=== PATIENT | male | born 1980 | race Caucasian/White ===

== ENCOUNTER 2017-07-02 06:09 | Emergency (ER) | payer SELFPAY ==
[2017-07-02 06:20] VITALS: BMI 25.2
[2017-07-02] MEDS ORDERED: ACETAMINOPHEN 325 MG TABLET (FP) PO ONE (07:48)
--- NOTE | 2017-07-02 07:48 | PDOC ---
History of Present Illness - General Chief Complaint: Shortness of Breath Stated Complaint: SOB Time Seen by Provider: 07/02/17 07:19 History Source: Patient - History of Present Illness Timing/Duration: reports: yesterday Associated Symptoms: reports: chest pain/soreness, cough, shortness of breath. denies: fever/chills Past History - Past Medical History Allergies/Adverse Reactions: Allergies Allergy/AdvReac Type Severity Reaction Status Date / Time No Known Allergies Allergy Verified 07/02/17 06:50 Home Medications: Ambulatory Orders Clonazepam [Klonopin] 3 mg PO HS 07/02/17 Paxil 0 mg PO BID PRN 07/02/17 Anemia: No Asthma: No Cancer: No Cardiac Disorders: No CVA: No COPD: No DVT: No Dementia: No Diabetes: No Dialysis: No GI Disorders: No Disorders: No HTN: No Hypercholesterolemia: No Kidney Stones: No Liver Disease: No Psychiatric Problems: Yes (Depression Insomnia Anxiety) Seizures: No Thyroid Disease: No Lung CA: No - Surgical History Abdominal Surgery: Yes (Trauma) Appendectomy: Yes Cardiac Surgery: No Cholecystectomy: No Gastric Stapling: No GI Surgery: No Lung Surgery: No Neurologic Surgery: No - Suicide/Smoking/Psychosocial Hx Smoking History: Never smoked Have you smoked in the past 12 months: No Information on smoking cessation initiated: No Hx Alcohol Use: No Drug/Substance Use Hx: No Substance Use Type: None Review of Systems - Review of Systems Constitutional: No: Chills, Fever Respiratory: Yes: Cough, Shortness of Breath. No: Wheezing Cardiac (ROS): Yes: Chest Tightness. No: Palpitations *Physical Exam - Vital Signs Last Vital Signs Temp Pulse Resp BP Pulse Ox 98.3 F 79 20 121/67 97 07/02/17 06:19 07/02/17 06:19 07/02/17 06:19 07/02/17 06:19 07/02/17 06:19 - Physical Exam General Appearance: Yes: Appropriately Dressed, Mild Distress HEENT: positive: Normal Voice. negative: Scleral Icterus (R), Scleral Icterus ( L) Neck: positive: Supple Respiratory/Chest: positive: Lungs Clear, Normal Breath Sounds. negative: Respiratory Distress Cardiovascular: positive: Regular Rate, S1, S2 Extremity: positive: Normal Inspection Integumentary: positive: Dry, Warm Neurologic: positive: Fully Oriented, Alert, Normal Mood/Affect Heart Score/ECG Review - ECG Intrepretation Comment:: 07/02/17 08:30 Twelve-lead EKG was performed and reviewed by me. There is normal sinus rhythm with a normal rate. The axis is normal. The intervals are normal. There are no ST or T wave abnormalities. Impression: Normal twelve-lead EKG ED Treatment Course - RADIOLOGY Radiology Studies Ordered: Category Date Time Status CHEST PA & LAT [RAD] Stat Radiology 07/02/17 07:42 Ordered Medical Decision Making - Medical Decision Making 07/02/17 07:45 36-year-old male, h/o PNA remotely, here with chest tightness and ?shortness of breath since yesterday. Also complaining of mostly non-productive cough and headache. Denies any fever, chills palpitations or leg pain/swelling. No obvious risk factors for DVT, PE. States he smokes marijuana occasionally but no cigarettes or any other illicit drug use. See exam URI w/ cp/sob Stable w/ clear chest/lungs -will r/o PNA -ekg given severity of CP 07/02/17 07:48 07/02/17 09:00 EKG and chest x-ray read as negative. Patient remains stable and mostly sleeping in ED. Results discussed with patient who feels comfortable going home with supportive treatment. Reasons to return discussed with patient 07/02/17 09:01 *DC/Admit/Observation/Transfer Diagnosis at time of Disposition: URI (upper respiratory infection) Qualifiers: URI type: unspecified viral URI Qualified Code(s): J06.9 - Acute upper respiratory infection, unspecified; B97.89 - Other viral agents as the cause of diseases classified elsewhere; B97.89 - Other viral agents as the cause of diseases classified elsewhere - Discharge Dispostion Disposition: HOME Condition at time of disposition: Good - Referrals - Patient Instructions Printed Discharge Instructions: DI for Viral Upper Respiratory Infection -- Adult Additional Instructions: Rest, drink plenty of fluids and take Tylenol as needed for pain. Return to ER for worsening of symptoms - Post Discharge Activity
[2017-07-02] MEDS ORDERED: ACETAMINOPHEN 650 MG/20.3 ML ORAL SOLUTION (CUPS) ONE (08:10)
--- NOTE | 2017-07-02 08:43 | EKG ---
Test Reason : Blood Pressure : / mmHG Vent. Rate : 084 BPM Atrial Rate : 084 BPM P-R Int : 180 ms QRS Dur : 078 ms QT Int : 380 ms P-R-T Axes : 049 023 032 degrees QTc Int : 449 ms NORMAL SINUS RHYTHM NORMAL ECG NO PREVIOUS ECGS AVAILABLE BASELINE ARTIFACT Confirmed by LENORA XIONG, SERAFIN ([id number]) on 07/02/2017 8:43:10 AM Referred By: Confirmed By:SERAFIN COOLEY MD
[2017-07-02 09:29] VITALS: BP 132/78; PULSE 72; TEMP 98.1
== END 2017-07-02 09:30 | disposition home or self-care (01) ==
LOC: JER 06:09
DX: J06.9 Acute upper respiratory infection, unspecified (principal); B97.89 Other viral agents as the cause of diseases classified elsewhere; F41.8 Other specified anxiety disorders; G47.00 Insomnia, unspecified
CPT/HCPCS: 71046-TC; 93005; 93010; 99282-25